=== PATIENT | female | born 1955 | race African-American/Black ===

== ENCOUNTER 2021-03-18 17:01 | Emergency (ER) | payer SELFPAY ==
[2021-03-18 18:06] VITALS: BP 161/110; PULSE 74; TEMP 97.4; BMI 46.6
[2021-03-18] MEDS ORDERED: predniSONE 20 MG TABLET (UD) PO ONE (18:53)
[2021-03-18] MEDS ORDERED: ALBUTEROL SO4 2.5/IPRATROPIUM 0.5 INH SOL 3 ML VIAL.NEB. NEB SCH (19:00)
[2021-03-18] MEDS ORDERED: predniSONE 20 MG TABLET (UD) ONE (19:17)
[2021-03-18] MEDS ORDERED: ALBUTEROL SO4 2.5/IPRATROPIUM 0.5 INH SOL 3 ML VIAL.NEB. NEB ONE (19:17)
[2021-03-20 11:07] LABS: SARS-CoV-2 NAA Detected (Not Detected)
== END 2021-03-18 22:20 | disposition home or self-care (01) ==
LOC: JER 17:01
PROC: 3E0F7GC Introduction of Other Therapeutic Substance into Respiratory Tract, Via Natural or Artificial Opening (ICD-10-PCS; principal; 2021-03-18)
DX: J45.21 Mild intermittent asthma with (acute) exacerbation (principal); J06.9 Acute upper respiratory infection, unspecified
CPT/HCPCS: 87804; 87807; 99283-25; C9803; U0003; U0005

== ENCOUNTER 2022-04-06 15:43 | Emergency (ER) | payer OTHER ==
[2022-04-06 15:52] VITALS: TEMP 97.8; BMI 47.5
[2022-04-06] MEDS ORDERED: ACETAMINOPHEN 325 MG TABLET (FP) PO ONE (17:04)
[2022-04-06] MEDS ORDERED: KETOROLAC TROMETHAMINE 15 MG/ML VIAL IVPUSH ONE (17:11)
[2022-04-06] MEDS ORDERED: ACETAMINOPHEN 325 MG TABLET (FP) ONE (17:12)
[2022-04-06] MEDS ORDERED: KETOROLAC TROMETHAMINE 15 MG/ML VIAL ONE (17:13)
[2022-04-06 17:34] LABS: HEMATOCRIT 43.3 % (32.4-45.2); HEMOGLOBIN 14.2 GM/dL (10.7-15.3); MCH 29.7 pg (25.7-33.7); MCHC 32.8 g/dl (32.0-36.0); MEAN CELL VOLUME 90.7 fl (80-96); MEAN PLT VOLUME 7.3 fl (7.5-11.1); PLATELET COUNT 364 10^3/uL (134-434); RBC 4.78 M/mm3 (3.60-5.2); RDW 14.5 % (11.6-15.6); WHITE BLOOD COUNT 9.1 K/mm3 (4.0-10.0)
[2022-04-06 17:55] LABS: CALCIUM 9.7 mg/dL (8.5-10.1)
[2022-04-06 17:56] LABS: ALBUMIN 3.6 g/dl (3.4-5.0); BLOOD UREA NITROGEN 15.3 mg/dL (7-18)
[2022-04-06 17:59] LABS: CREATININE 1.2 mg/dL (0.55-1.3)
[2022-04-06 18:00] LABS: BILIRUBIN,TOTAL 0.6 mg/dL (0.2-1); TOT PROT 7.6 g/dl (6.4-8.2)
[2022-04-06 18:11] LABS: ACTIVATED PTT 35.4 SECONDS (25.2-36.5); INR 0.97 (0.83-1.09); PROTHROMBIN TIME (PATIENT) 11.2 SEC (9.7-13.0)
[2022-04-06] MEDS ORDERED: MAGNESIUM SULF 50% (8.12 MEQ/2 ML-1 GM VIAL) IVPB ONE (18:16)
[2022-04-06] MEDS ORDERED: MAGNESIUM SULFATE IN WATER 2 GM/50 ML IVPB IVPB ONE (18:21)
[2022-04-06 19:32] VITALS: BP 157/94; PULSE 83; RESP 18
== END 2022-04-06 20:30 | disposition home or self-care (01) ==
LOC: JER 15:43
PROC: 3E0333Z Introduction of Anti-inflammatory into Peripheral Vein, Percutaneous Approach (ICD-10-PCS; principal; 2022-04-06)
PROC: 3E033GC Introduction of Other Therapeutic Substance into Peripheral Vein, Percutaneous Approach (ICD-10-PCS; 2022-04-06)
DX: M79.661 Pain in right lower leg (principal); M79.662 Pain in left lower leg; E83.42 Hypomagnesemia
CPT/HCPCS: 36415; 80053; 83735; 84132; 85027; 85610; 85730; 93005; 93010; 93970-TC; 99285-25